=== PATIENT | female | born 1945 | race Caucasian/White ===

== ENCOUNTER 2016-12-06 12:29 | Emergency (ER) | payer MEDICARE, OTHER ==
[~2016-12-06] VITALS: Ht 162.6 cm; Wt 75.0 kg
[~2016-12-06 12:29] MED LIST: LISINOPRIL (*)20 MG PO; LORA-302 PO
[2016-12-06 12:35] VITALS: BP 178/99; PULSE 104; RESP 20; O2SAT 96
--- NOTE | 2016-12-06 13:14 | ED.REPORT ---
HPI-Chest Pain 40 and Over Date of Service Dec 06, 2016 ED Provider: Sudha Christie Nursing Notes Stated Complaint: FAST HEARTBEAT Chief Complaint: Female Abdominal Pain Nursing Notes Reviewed: Yes Allergies: Coded Allergies: amoxicillin (Verified Allergy, Mild, Nausea, 07/27/16) tamsulosin HCl (Verified Allergy, Unknown, 07/27/16) felt flushed and "like a metal taste in my mouth" Scheduled Lisinopril-Expunged Drug, Do Not Renew! (Lisinopril-Expunged Drug, Do Not Renew! ) 20 Mg Tablet 20 MG PO DAILY Lorazepam-Expunged Drug, Do Not Renew! (Lorazepam-Expunged Drug, Do Not Renew!) 0.5 Mg Tablet 0.5 MG PO PRN Metoprolol Succinate ER (Metoprolol Succinate ER) 25 Mg Tab.er.24h 25 MG PO DAILY General Time Seen by MD: 12:44 Chief Complaint Nausea, Other (rapid heart rate) Sudden onset of very rapid heart rate and epigastric pain. Lasted 35 minutes. Lenore anxious. Vasovagaled several times and heart rate slowed to normal. Has had previous episodes of same. Denies CP, SOB, or nausea. Hx Obtained From: Patient Arrived By: Walk-in Sudden in Onset?: Yes Onset Occurred: Just prior to arrival Context of Onset: At rest Symptom Duration: Since onset Location: : Epigastric Quality: Same as prior Radiation: : Does not radiate Migration/Movement: Reports: None Severity: Current: No pain currently Severity: Maximum: No pain Associated with: Reports: Nausea, Palpitations, Denies: Cough, productive, Dizziness, Fatigue, Fever, Lightheaded, Near- syncope, Numbness/Tingling, Recent viral symptoms, Shortness of Breath, Vomiting , Weakness, Wheezing Pertinent Negative: Pt denies other symptoms Exacerbated by: Movement Relieved by: Rest (vasovagal maneuver) Context Related History: Reports: Anxiety disorder, Esophagitis, GERD, Hypertension, Denies: Acute coronary syndrome, Asthma, Congestive heart failure, Diabetes mellitus, Pericarditis, Pneumonia, Pulmonary embolism, Syncope Recent Healthcare: No recent doctor visit, Prior workup (last july, for same ) Past Medical History Past Medical History PVCs Hx of paroxysmal a-fib Anxiety GERD HTN Past Surgical History None reported Smoking History Never Smoker Social History Other Social History: Good social support, Local resident Ambulatory Status Independent Review of Systems Basic Review of Systems Eyes: Vision NL, No discharge ENT: Hearing NL, No pain, No nasal congestion, No pharyngeal pain : No dysuria, No frequency Hematologic: No bleeding, No bruising Endocrine: No cold intolerance, No heat intolerance, No weight gain, No weight loss Allergy / Immune: No allergy Constitutional: Denies: Chills, Fever Respiratory: Denies: Dyspnea on exertion, Hemoptysis Cardiovascular: Reports: Palpitations, Denies: Chest pain, Dyspnea on exertion, Edema, Orthopnea GI: Denies: Abdominal pain, Nausea Musculoskeletal: Denies: Back pain Skin: Denies Bruising, Denies Rash Neurologic: Denies: Confusion, Dizziness Psychiatric: Reports: Anxiety Complete sys rev & neg: except as marked. Physical Exam Physical Exam Notes: pt asymptomatic upon exam. Becomes tearful when talking about life stressors. Initial Vital Signs Vital Signs (First) Date Time Temp Pulse Resp B/P Pulse Ox O2 Delivery O2 Flow Rate FiO2 12/06/16 12:35 36.4 104 20 178/99 96 Room Air Initial VS: Reviewed Head / Eyes: Atraumatic, Normocephalic, PERRL ENT: Mucous membranes moist, Conjunctiva normal, No scleral icterus Neck: Supple, Non-tender, Full range of motion Back: No CVA tenderness Lymphatic: No lymphadenopathy Extremities: Vascular intact, Neuro intact, No swelling, No tenderness Skin: Warm, Dry, No cyanosis Neurologic: Alert, Oriented, Nonfocal Psychiatric: Mood/affect normal, Behavior normal, Normal thought content General/Constitutional: Awake, Alert, No acute distress Respiratory / Chest: Atraumatic, Breath sounds NL, Breath sounds = bilat, No respiratory distress, No rales, No rhonchi, No wheezing, No chest tenderness Cardiovascular: Heart rate NL, Regular rhythm, Heart sounds NL, No gallop, No murmurs, No rubs, Cap refill not delayed Abdomen: Atraumatic, Soft, Non-tender Interpretation & Diagnostics Lab Results Interpretation Result Diagram: 12/06/16 1333 12/06/16 1333 Test 12/06/16 13:33 White Blood Count 5.5th/mm3 (3.8-10.1) Red Blood Count 4.36mil/mm3 (3.90-5.20) Hemoglobin 13.9g/dL (12.0-15.6) Hematocrit 42.7% (35.0-46.0) Mean Corpuscular Volume 97.9fL (81-100) Mean Corpuscular Hemoglobin 31.9pg (27.0-35.0) Mean Corpuscular Hemoglobin Concent 32.6% (32.0-37.0) Red Cell Distribution Width 12.2% (12.3-15.4) Platelet Count 143bil/L (150-400) Neutrophils (%) (Auto) 64.4% (40-74) Lymphocytes (%) (Auto) 24.4% (14-46) Monocytes (%) (Auto) 8.1% (4-12) Eosinophils (%) (Auto) 2.5% (0-5) Basophils (%) (Auto) 0.4% (0-3) Sodium Level 140mEq/L (134-144) Potassium Level 3.7mEq/L (3.5-5.2) Chloride Level 102mEq/L (97-108) Carbon Dioxide Level 20mmol/L (18-29) Blood Urea Nitrogen 18mg/dL (8-27) Creatinine 0.57mg/dL (0.57-1.00) Estimat Glomerular Filtration Rate 150mL/min (>59) Glucose Level 104mg/dL (60-99) Calcium Level 8.7mg/dL (8.5-10.1) Magnesium Level 2.1mg/dL (1.6-2.6) Total Bilirubin 0.4mg/dL (0.0-1.2) Aspartate Amino Transf (AST/SGOT) 25U/L (0-50) Alanine Aminotransferase (ALT/SGPT) 28U/L (0-32) Alkaline Phosphatase 59U/L (25-165) Troponin T < 0.010ug/L (0.0-0.011) Total Protein 7.2g/dL (6.4-8.4) Albumin 4.6g/dL (3.4-5.0) Thyroid Stimulating Hormone (TSH) 1.230uIU/mL (0.450-4.500) Lab values outside NL range: no clinical significance. Re-Eval/Medical Decision Med Decision/Clinical Course Normal ECG, CXR, and labs. Advised pt to f/u with cardiology to discuss possibility of holter monitor. Consultation : Referral / Consult Name: Parvez Gupta DO Grade Setter: Agrees with eval, Agrees with plan Note: discussed case with Dr. Gupta, who suggests starting a low dose Metoprolol at 25mg daily to help prevent tachycardic episodes. Differential Diagnosis: Positive: Acute coronary syndrome, Anxiety disorder, Chest pain, Dysrhythmia, Esophagitis, GERD, Pneumonia, Unstable angina Counseled Regarding: Diagnosis, Lab results, Need for follow-up, When/why to return to ED Discharge & Departure Primary Impression: Rapid heart rate Additional Impressions: GERD (gastroesophageal reflux disease) Anxiety Disposition: Home Discharge Condition All VS Reviewed: Yes Condition: Improved Patient Instructions: Gastroesophageal Reflux Disease (ED), Generalized Anxiety Disorder (ED) Additional Instructions: Your x-ray, ECG, and labs all looked normal today. The symptoms you described sound like a rapid heart rate. This can be caused by anxiety, caffeine, or an arrythmia such as atrial fibrillation or supraventricular tachycardia. We did not see this while you were in the ER today. I would like you to follow up with cardiology again and see if they would like to do further testing of this condition. Keep taking your regular home medicines for hypertension and GERD. Follow up with your regular doctor or return to the ER for any other concerns. Referrals: Praveen Doyle MD (PCP) Albert Humphrey MD, Lora L ARNP Dec 06, 2016 13:14
[2016-12-06] MEDS ORDERED: Alum-Mag Hydrox-Simeth 30 mL Suspension PO ONE (13:15)
[2016-12-06 13:41] LABS: BASOPHILS % (AUTO) 0.4 % (0-3); EOSINOPHILS % (AUTO) 2.5 % (0-5); MONOCYTES % (AUTO) 8.1 % (4-12); Mean Corpuscular Hemoglobin 31.9 pg (27.0-35.0); Mean Corpuscular Volume 97.9 fL (81-100); NEUTROPHILS % (AUTO) 64.4 % (40-74); Platelet Count 143 bil/L (150-400)
--- NOTE | 2016-12-06 13:42 | DRSVH ---
PROCEDURE: X-RAY CHEST ONE VIEW, PORTABLE ([id number]) INDICATIONS: tachycardia, chest pressure TECHNIQUE: One view of the chest was acquired. COMPARISON: None. FINDINGS: Surgical changes and devices: None. Lungs and pleura: No pleural effusions or pneumothorax. Lungs are clear. Mediastinum: Mediastinal contours appear normal. Heart size is normal. Bones and chest wall: No suspicious bony lesions. Overlying soft tissues appear unremarkable. IMPRESSION: No acute cardiopulmonary findings. Dictated by: Yuki Gonzalez M.D. on 12/06/2016 at 13:40 Approved by: Yuki Gonzalez M.D. on 12/06/2016 at 13:40
[2016-12-06 14:12] LABS: TROPONIN T < 0.010 ug/L (0.0-0.011)
[2016-12-06 14:20] LABS: Magnesium 2.1 mg/dL (1.6-2.6)
[2016-12-06] MEDS ORDERED: METO25TA99 PO (14:42)
== END 2016-12-06 14:54 | disposition home or self-care (01) ==
LOC: SED 12:29
DX: F41.9 Anxiety disorder, unspecified (principal); R00.0 Tachycardia, unspecified; K21.9 Gastro-esophageal reflux disease without esophagitis; I10 Essential (primary) hypertension; Z86.79 Personal history of other diseases of the circulatory system; Z88.1 Allergy status to other antibiotic agents; Z88.8 Allergy status to other drugs, medicaments and biological substances